=== PATIENT | female | born 1950 | race Caucasian/White ===

== ENCOUNTER 2020-12-24 00:10 | Inpatient (IN) | payer MEDICARE, SELFPAY ==
[2020-12-24] VITALS (10 sets, daily range): BP systolic 128–190; BP diastolic 71–94; PULSE 57–77; RESP 14–20; TEMP 36.6–37.2; O2SAT 96–99; BMI 26.1
--- NOTE | 2020-12-24 00:49 | PC.NURSE ---
Admission Patient arrived to the floor by EMS, patient alert and oriented X4, follows commandnds, breathing even and non labored on room air, patient placed on telemetry, rhythm NSR, oriented to room and call light system, pt wishes to stay in own clothes at this time, pt denies any pain or discomfort at this time.
--- NOTE | 2020-12-24 03:11 | PC.NURSE ---
Tranfer note This nurse called report to Charge nurse STEPHAN Maria, PT then transferred from [facility] to Med Surg room 256-1, Pt transferred by wheel chair with all personal belongings. Pt ambulated from the wheel chair to the bed stand by assist, Pt oriented to room and call light system, pt breathing even and unlabored on RA, no complaints at this time.
--- NOTE | 2020-12-24 04:43 | PM.HP ---
Providers/Chief Complaint Admitting Physician: Rhonda Stewart MD Chief Complaint: non stemi History of Present Illness Deandra Temple is a 70 year old female who was transferred to our hospital after presenting initially at [facility] with chief complaints of chest pain. She states that her chest pain started while she was carrying out a heavy box to her car. Rates it 8 out of 10. [place] as a pressure in the center of her chest, nonradiating. Relieved by itself a few minutes later. States she has had episodes of similar chest pain over the past week. Diaphoretic during episode. No past h/o cardiac issues. No h/o HTN, DM, HLD. No dyspnea. No orthopnea Notable labs or hemoglobin of 14.9, WBC 5.8, platelets 192, INR 0.8, sodium 138, potassium 4.2, creatinine 0.84, BUN 9, AST 101, ALT 53, ALP 125, T bili 0.5. UA with trace leukocyte Estrace and trace ketones. Negative nitrite. Negative U tox. Chest x-ray without acute cardiopulmonary abnormality. Baseline troponin of 16, 2-hour troponin of 35, delta troponin of 19 at 2 hours. COVID-19 antigen negative. She received 324 mg of aspirin. EKG normal sinus rhythm. vaccinated for Covid 19 Review of Systems General: Reports: 10 or more systems reviewed and unremarkable except in HPI and below Const: Denies: fever(s), chills or body aches Eyes: Denies: change in vision, blurry vision or photophobia ENMT: Reports: hoarseness; Denies: throat pain, enlarged tonsils, odynophagia or nasal congestion Card: Denies: chest pain, palpitations, irregular heart rhythm, edema, swelling of feet/ankles, lightheadedness, pre-syncope, dyspnea on exertion or orthopnea Resp: Denies: dyspnea, productive cough, non-productive cough, wheezing, stridor, pain on inspiration, change in phlegm color, hemoptysis or chest congestion GI: Denies: abdominal pain, nausea, vomiting, hematemesis, coffee ground emesis, dysphagia, heartburn, diarrhea, constipation, GI cramping, change in stool character, hematochezia or melena : Denies: flank pain, difficulty voiding, dysuria, urinary frequency, urinary urgency, urinary hesitancy or hematuria Musc: Denies: neck pain, back pain, extremity pain, joint swelling, joint warmth or deformity Neuro: Denies: headache(s), numbness in extremities, weakness in extremities, sensory changes, difficulty walking, frequent falls, dizziness, vertigo, behavioral changes, Slurred speech present or seizure-like activity Psych: Denies: anxiety, depression, suicidal ideation or homicidal ideation Endo: Denies: polyuria, polydipsia, tired all the time, cold intolerance or hot flashes Alcides/Lymph: Denies: easy bruising or easy bleeding Medications/Allergies Home Medications Medication Instructions Recorded Confirmed Last Taken Type No Known Home Medications 12/24/20 12/24/20 Unknown History Allergies Allergy/AdvReac Type Severity Reaction Status Date / Time Pork/Porcine Containing Allergy ADR-Nausea Verified 12/24/20 00:30 Products Poultry Allergy ADR-Nausea Verified 12/24/20 00:30 animal proteins Allergy ADR-Nausea Uncoded 12/24/20 00:30 red meat Allergy ADR-Nausea Uncoded 12/24/20 00:29 Vitals/I&O/Wt Last Vital Signs Temp 98.6 F 12/24/20 03:43 Pulse 62 12/24/20 03:43 Resp 18 12/24/20 03:43 BP 142/71 12/24/20 03:43 Pulse Ox 96 12/24/20 03:43 Weight last 48 hrs Weight 82.554 kg Physical Exam Narrative: EXAM NARRATIVE: General: No acute distress, AO x3 HEENT: PERRLA, pupils bilaterally equal and reactive, pallors not present Chest: Normal vesicular breath sounds, no added sounds, equal good air entry bilaterally CVS: S1-S2 regular, no murmurs, no tachycardia, no gallops, no rubs Abdomen: Soft, nontender, no organomegaly, bowel sounds present Neuro: No focal deficits, no facial deformity, AO x3, power 5/5 in all limbs Extremities: no edema, clubbing or cyanosis A&P Assessment and plan (1) Chest pain: Patient presented to the hospital today due to complaint of chest pain intermittent over the past week, today the episode associated with diaphoresis, more severe at 8 out of 10 intensity. Baseline and 2-hour troponins taken at [facility] as noted above in HPI. A 6-hour troponin was not drawn over there. EKG and troponin series here. From [facility] EKG shows normal sinus rhythm, no acute ST-T wave changes. Chest pain is currently settled at this time. If troponin taken here trending down, will proceed with stress test as chest pain could possibly represent angina pectoris. If any EKG changes develop and or troponin trending up, patient will be treated as an NSTEMI. Already given aspirin 325, continue aspirin 81, start atorvastatin 40 mg daily lipid panel for risk stratification. Status: Acute Attestations Medical Necessity Statement*: Observation, anticipate less than 2 midnight for above defined care. Coding Level of Care Code Acute Seed Expert for Chg Fwd Diagnoses Chest pain R07.9
--- NOTE | 2020-12-24 04:48 | ECG_ITS ---
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 Interpretive Statements NAME OF STUDY: LEXISCAN SESTAMIBI STRESS TEST INDICATION: Chest Pain PROCEDURE: At the baseline, the blood pressure was 181/97 mmHg with a heart rate of 75 bpm. The electrocardiogram showed sinus rhythm, normal axis with possible old septal infarct. The Lexiscan was infused over a period of 20 seconds. A total of 0.4 milligrams of Lexiscan was infused. The stress phase was continued for a total of 5 minutes. Heart rate at the end of the stress phase was 75 bpm with a blood pressure of 158/91 mmHg. The EKG at the peak infusion revealed no significant ST-T wave changes. The study was terminated due to protocol completion. Isolated PVCs noted. Sestamibi was injected 20 seconds after the Lexiscan infusion. Blood pressure at the end of the recovery phase was 138/91 mmHg with a heart rate of 74 beats per minute. CONCLUSION: 1. No significant EKG changes with the LexiScan infusion 2. No LexiScan induced chest pain or cardiac arrhythmia. 3. Normal blood pressure and heart rate response. 4. Sestamibi/sestamibi perfusion scan pending; see separate report. Electronically Signed On 12-24-2020 12:55:56 CDT by Jessenia Casanova M.D. [id number]
--- NOTE | 2020-12-24 04:48 | NMCV_ITS ---
NM kehinde perf SPECT r/s* [id number] Deandra Temple Age: 70 Gender: F : 1950 Exam Date: 12/24/2020 07:25 Ordering Phys: Rhonda Stewart MD Technologist: SARAH Barnett Exam Location: [facility] Indications: NSTEMI STRESS TEST Please see separate stress test report in [facility] for full findings IMAGE PROTOCOL Rest/Stress 1 Lexiscan Day Radiopharmaceutical Dose (mCi) Administration Site Administered by Rest: Tc-99m 10.8 IV SARAH Miles Sestamibi Stress:Tc-99m 32.5 IV SARAH Miles Sestamibi Rest: 24-Dec-2020 60 Discovery 630 Stress: 24-Dec-2020 30 Discovery 630 0.4mg Lexiscan. Images obtained in supine and prone position. SPECT RESULTS Technical Quality: Excellent Raw Data Analysis: Normal Image Corrections: No attenuation or motion correction applied Summed Stress Score: 10 Summed Rest Score: 6 Summed Difference Score: 4 PERFUSION FINDINGS Small size perfusion abnormality of mild severity of mid inferolateral, apical lateral, apical inferior and apical wall on rest images with reversibility in apical inferior, apical anterior and apical lateral paz on stress images. FUNCTIONAL RESULTS (calculated via Gated SPECT) Stress Image LV EF (%): 82 Stress EDV (mL):71 TID: 0.72 Stress ESV (mL):13 FUNCTIONAL FINDINGS: The left ventricle is normal in size. Transient Ischemia Dilatation of 0.72. There is normal left ventricular systolic function. The left ventricular ejection fraction is normal with a value of 82%. There is normal left ventricular wall thickening with no regional wall motion abnormality. Normal end-diastolic end-systolic volumes. IMPRESSIONS 1. Small sized reversible perfusion abnormality of mild severity of mid inferolateral, apical lateral, apical inferior, apical anterior and apical paz. 2. These findings likely represent small area of ischemia in left anterior descending artery territory. 3. Overall left ventricular systolic function is normal without regional wall motion abnormalities. 4. No significant EKG changes with Lexiscan infusion. 5. No prior similar studies to compare. Jessenia Casanova MD (Electronically Signed) Final Date: 24 December 2020 12:18 S
--- NOTE | 2020-12-24 04:49 | ECG_ITS ---
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 Measurements Intervals [place] Rate: 66 P: -22 [place]: 166 QRS: -5 QRSD: 87 T: 3 QT: 406 QTc: 426 Interpretive Statements SINUS RHYTHM LOW QRS VOLTAGE IN PRECORDIAL LEADS [QRS DEFLECTION < 1.0 mV IN CHEST LEADS] SEPTAL MYOCARDIAL INFARCTION [40+ ms Q WAVE IN V1/V2], PROBABLY OLD No previous ECG available for comparison Electronically Signed On 12-29-2020 16:46:13 CDT by Jessenia Casanova M.D. [id number]
[2020-12-24 05:29] LABS: D Dimer 0.79 ug/mIFEU (0-0.59)
[2020-12-24 05:32] LABS: Troponin(5th) Baseline 14 ng/L (0-10)
--- NOTE | 2020-12-24 05:32 | USCV_ITS ---
Maverick Deandra Age: 70 Gender: F : 1950 Exam Date: 12/24/2020 06:15 Ordering Phys: Rhonda Stewart MD Technologist: Natalya England Exam Location: [facility] Indication: PAIN, NSTEMI BP: 142 / 71 HR: 70 Rhythm: Sinus Technical Quality: Adequate MEASUREMENTS (Male / Female) Normal Values 2D ECHO LV Diastolic Diameter PLAX 5.0 cm 4.2 - 5.9 / 3.9 - 5.3 cm LV Systolic Diameter PLAX 3.5 cm IVS Diastolic Thickness 1.0 cm 0.6 - 1.0 / 0.6 - 0.9 cm IVS Systolic Thickness 1.3 cm LVPW Diastolic Thickness 1.2 cm 0.6 - 1.0 / 0.6 - 0.9 cm LVPW Systolic Thickness 1.8 cm RV Chamber Size 3.0 cm LVOT Diameter 2.0 cm LV Ejection Fraction 2D Teich 55.7 % LV Ejection Fraction MOD 2C 48.8 % LV Ejection Fraction 2C AL 51.9 % LA Diameter 3.0 cm LA Width 3.2 cm LA Height 3.4 cm RA Width 2.6 cm RA Height 3.8 cm Aorta at Sinotubular Diameter 2.4 cm M-MODE Aortic Annulus Diameter 2.4 cm LA Ao Ratio MM 1.3 MV E Point Septal Separation 0.8 cm DOPPLER AV Peak Velocity 136.0 cm/s LVOT Peak Velocity 93.0 cm/s AV Area Cont Eq vti 1.9 cm squared AV Area Cont Eq pk 2.2 cm squared MV Area PHT 2.7 cm squared Mitral E to A Ratio 0.6 MV E' Velocity 35.0 cm/s Mitral E to MV E' Ratio 7.9 Mitral E to LV E' Lateral Ratio 7.1 Mitral E to LV E' Septal Ratio 8.9 TR Peak Velocity 213.0 cm/s TR Peak Gradient 18.1 mmHg TV Peak E Velocity 52.0 cm/s Right Atrial Pressure 3.0 mmHg Pulmonary Artery Systolic Pressu 21.1 mmHg PV Peak Velocity 92.0 cm/s RV Acceleration Time 0.1 s RV Ejection Time 0.3 s RV AcT/ET 0.4 FINDINGS Left Ventricle Normal left ventricular cavity size. Normal left ventricular systolic function. No regional wall motion abnormalities. Left ventricular ejection fraction is estimated at 60 %. Grade I/IV diastolic dysfunction (abnormal relaxation filling pattern), normal to mildly elevated filling pressures. Right Ventricle The right ventricle is normal in size and function. Right Atrium The right atrium is normal in size. Left Atrium The left atrium is normal in size. Mitral Valve Structurally normal mitral valve without significant stenosis or prolapse. There is no mitral regurgitation. Aortic Valve Moderate aortic valve calcification. No aortic valve stenosis. Trace aortic valve regurgitation. Tricuspid Valve Structurally normal tricuspid valve without significant stenosis or regurgitation. Pulmonary artery systolic pressure is normal. Pulmonic Valve Structurally normal pulmonic valve without significant stenosis. There is no pulmonic regurgitation. Pericardium Normal pericardium without effusion. Aorta Normal ascending aorta dimension. CONCLUSIONS 1-Normal left ventricular cavity size. Normal left ventricular systolic function. No regional wall motion abnormalities. Left ventricular ejection fraction is estimated at 60 %. Grade I/IV diastolic dysfunction (abnormal relaxation filling pattern), normal to mildly elevated filling pressures. 2-No significant valve abnormalities. 3-There is no pericardial effusion. 4-Pulmonary artery systolic pressure is within normal limits. 5-Right atrial pressure is around 5 mm of mercury. 6-There are no prior echocardiogram studies to compare. Gwendolyn Trujillo MD (Electronically Signed) Final Date: 24 December 2020 12:52 S
[2020-12-24 06:01] LABS: Chol HDL Ratio 2.38 mg/dL (0.0-4.40); Cholesterol 169 mg/dL (0-200); HDL Cholesterol 71 mg/dL (60-100); LDL Cholesterol Calculated 85 mg/dL (50-129); Triglycerides 63 mg/dL (0-150)
[2020-12-24] MEDS: atorvastatin 40 mg Tablet PO ×2 (06:52→21:19)
[2020-12-24] MEDS: regadenoson 0.4 Mg/5 ml Syringe IVP (09:07)
--- NOTE | 2020-12-24 10:40 | PC.CHAP ---
Pastoral Care Encounter/Spiritual Assessment Type of Contact [] Declined business process architect visit [] Patient/Family/Request visit [] Outpatient visit [] Follow-up visit [] Physician referral [] Code/Alert [x] Routine visit [] Staff referral [] Actively dying [] Patient sleeping [] Family support [] [] Out of room [] Palliative care [] [x] Receiving care in room [] Pre-surgical visit [] Trauma [x] Long length of stay [] ICU visit [] Other: Relational/Emotional Strength [x] Patient feels connected with others/family/visitors/staff [] Distress [] Loneliness/isolation [] Abandonment Spirituality of Patient [] Person of Kenyatta [] Attends Spiritism of their Kenyatta [x] Believes in Prayer [] Reads Bible or Latter-Day materials [] There are Spiritual issues to be addressed Security Consultant Interventions [] Prayer [] Active listening [] Non-anxious presence [] Spiritual/emotional support [] Crisis/trauma care [] Spiritual counseling [] Bereavement support [] Provided bereavement packet [] Provided Bible/devotional materials [] Provided toy/stuffed animal, coloring book to patient or family member [] Provided Communion [] Anointing/[place] [] Salvation [] Completed spiritual assessment [] Other: Impact on Illness or Injury [] Angry [] Fearful [x] Anxious [] Often cries [] Exhaustion [] Unable to work [] Unable to attend congregation [] Unable to walk/stand [] Unable to read [] Unable to drive [] Unable to eat/drink [] Unable to sleep [] Unable to be with family [] Patient intubated [] Other: Summary Pancreatitis HBP Had tests doesn't know about the tests waiting on doctors report, has a good attitude about her health Time spent with patient 10 mins
--- NOTE | 2020-12-24 10:49 | ECG_ITS ---
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 Measurements Intervals [place] Rate: 70 P: 9 [place]: 193 QRS: -21 QRSD: 90 T: -8 QT: 378 QTc: 410 Interpretive Statements SINUS RHYTHM LOW QRS VOLTAGE IN PRECORDIAL LEADS [QRS DEFLECTION < 1.0 mV IN CHEST LEADS] SEPTAL MYOCARDIAL INFARCTION [40+ ms Q WAVE IN V1/V2], PROBABLY OLD Compared to ECG 12/24/2020 05:10:30 No significant changes Electronically Signed On 12-29-2020 16:52:31 CDT by Jessenia Casanova M.D. [id number]
[2020-12-24] MEDS: aspirin 81 mg EC Tablet PO (10:57)
[2020-12-24 15:22] LABS: Troponin T (5th) Once 12 ng/L (0-10)
--- NOTE | 2020-12-24 17:44 | P.CONIM_ITS ---
Providers/Reason For Consult Consulting Physician/Specialty*: Cardiology Reason for Consult*: Chest pain/abnormal stress test Attending Physician: Leroy Vasquez MD History of Present Illness History of Present Illness Deandra Temple is a 70 year old female past medical history significant past medical history significant for [id number] of tobacco abuse quit 4 years ago, hyperlipidemia who was experiencing off-and-on chest pain for the last 2 weeks, yesterday after moving heavy boxes she started chest pain which she described 8 out of 10 she was diaphoretic. She came to the ER after taking aspirin and pain medicine chest pain subsided. She was ruled out for acute coronary syndrome stress test was performed which showed small area of reversibility in the apical region could be artifact. Since then she had another episode of chest pain. We have been asked to assist in her care. Review of Systems General: Reports: 10 or more systems reviewed and unremarkable except in HPI and below Const: Denies: fever(s), chills or body aches Eyes: Denies: change in vision, blurry vision or photophobia ENMT: Reports: hoarseness; Denies: throat pain, enlarged tonsils, odynophagia or nasal congestion Card: Denies: chest pain, palpitations, irregular heart rhythm, edema, swelling of feet/ankles, lightheadedness, pre-syncope, dyspnea on exertion or orthopnea Resp: Denies: dyspnea, productive cough, non-productive cough, wheezing, stridor, pain on inspiration, change in phlegm color, hemoptysis or chest congestion GI: Denies: abdominal pain, nausea, vomiting, hematemesis, coffee ground emesis, dysphagia, heartburn, diarrhea, constipation, GI cramping, change in stool character, hematochezia or melena : Denies: flank pain, difficulty voiding, dysuria, urinary frequency, urinary urgency, urinary hesitancy or hematuria Musc: Denies: neck pain, back pain, extremity pain, joint swelling, joint warmth or deformity Neuro: Denies: headache(s), numbness in extremities, weakness in extremities, sensory changes, difficulty walking, frequent falls, dizziness, vertigo, behavioral changes, Slurred speech present or seizure-like activity Psych: Denies: anxiety, depression, suicidal ideation or homicidal ideation Endo: Denies: polyuria, polydipsia, tired all the time, cold intolerance or hot flashes Alcides/Lymph: Denies: easy bruising or easy bleeding Meds/Allergies Home Medications and Allergies Home Medications Medication Instructions Recorded Confirmed Last Taken Type No Known Home Medications 12/24/20 12/24/20 Unknown History Allergies Allergy/AdvReac Type Severity Reaction Status Date / Time Pork/Porcine Containing Allergy ADR-Nausea Verified 12/24/20 00:30 Products Poultry Allergy ADR-Nausea Verified 12/24/20 00:30 animal proteins Allergy ADR-Nausea Uncoded 12/24/20 00:30 red meat Allergy ADR-Nausea Uncoded 12/24/20 00:29 Current Medications Current Medications Generic Name Dose Route Start Last Admin Trade Name Omkarq PRN Reason Stop Dose Admin Aspirin 81 mg 12/24/20 09:00 12/24/20 10:57 Aspirin 81 Mg Ec Tablet PO 81 mg DAILY JOSÉ MIGUEL Administration Atorvastatin Calcium 40 mg 12/24/20 05:35 12/24/20 06:52 Atorvastatin 40 Mg Tablet PO 40 mg BEDTIME JOSÉ MIGUEL Administration Vitals/I&O/Wt Last Vital Signs Temp 98.9 F 12/24/20 15:25 Pulse 76 12/24/20 15:25 Resp 16 12/24/20 15:25 BP 164/94 12/24/20 15:25 Pulse Ox 97 12/24/20 15:25 12/24/20 12/24/20 12/24/20 06:59 14:59 22:59 Intake Total 120 / 120 1440 / 1440 Output Total 0 / 0 Balance 120 / 120 1440 / 1440 Weight last 48 hrs Weight 182 lb Physical Exam Narrative: EXAM NARRATIVE: GENERAL: Patient is alert, awake and oriented x3. NECK: No jugular vein distension. HEENT: No cyanosis. No icterus. No pallor. HEART: Regular S1 and S2. No murmur, rub or gallop. LUNGS: Clear to auscultate bilaterally. ABDOMEN: Soft, nontender and nondistended. Positive bowel sounds. No guarding, rebound or tenderness. CENTRAL NERVOUS SYSTEM: Grossly nonfocal. EXTREMITIES: Lower extremities without edema bilaterally. A&P Assessment and plan (1) Chest pain: Worsening of chest pain overnight last couple of weeks in a person who had strong family history of heart problem and tobacco abuse may need further exploration with left heart cath. Stress test is not suggestive of significant ischemia however patient story is pretty compelling. I would therefore proceed with left heart cath. I have discussed with the patient and her daughter all risk benefit and alternative for the procedure. She understand the risk for urgent emergent bypass surgery, risk for stroke hematoma major minor bleed leading to transfusion. She is a good candidate for dual antiplatelet therapy. I will load her with Plavix tonight. Most likely will proceed with left heart cath around 1 PM tomorrow. She will be n.p.o. after morning light breakfast. Status: Acute (2) Hyperlipidemia LDL goal <100: Continue statin Status: Acute Consult Attestations Medical Necessity Statement: Patient require continuation hospitalization for above defined care. 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
--- NOTE | 2020-12-24 18:40 | PC.NURSE ---
this nurse witnessed Dr. Haney talking with patient and her daughter about risk/benefits of cardiac cath procedure, all questions were answered appropriately. patient consented for procedure, signature and conversation witnessed by this nurse.
[2020-12-24] MEDS: clopidogrel 300 mg Tablet PO (19:49)
[2020-12-24] MEDS: temazepam 15 mg Capsule PO (21:20)
[2020-12-25] VITALS (65 sets, daily range): BP systolic 91–183; BP diastolic 54–123; PULSE 57–97; RESP 7–26; TEMP 36.4–37; O2SAT 92–98
--- NOTE | 2020-12-25 08:30 | XACV_ITS ---
Exam Room: 256 Ht: 178 cm Wt: 83 kg BSA: 2.03 m2 Gender: Female : 1950 Any Known Allergies: Other Exam Priority: Routine Procedure(s): Procedure Description: Diagnostic procedure Diagnostic Cath Status: Urgent Diagnostic Findings * Left Main has no disease. * Circumflex has no disease. * Right Coronary Artery has no disease. * Mid Left Anterior Descending: critical 95% stenosis, EARLINE: 3 flow. * Mid Left Anterior Descending: minimal 30% stenosis, EARLINE: 3 flow. * Coronary angiography shows right dominance. Interventional Findings * Mid Left Anterior Descendin% stenosis treated with a AB TREK 2.50X12 RX BALLOON, MDT Jasmine VERONICA 4.0X12 JEFFREY, and MDT DEONDRE EUPHORA RX [id number] BALLOON. 0% residual stenosis, EARLINE: 3 flow. Conclusions 1. There is critical coronary artery disease with one vessel disease. 2. Mid Left Anterior Descending was treated with a Balloon, Drug Eluting Stent, and Balloon. Recommendations * Continue current medical management and risk factor modification. Pressures Phase:Rest AO : 140 / 82 ( 107 ) @ 7:55:00 AM Clinical Evaluation EBL: 5mL-10mL Procedural Details Procedure Consent Obtained. Pre-Procedure Time Out. Identified patient by full name and date of as verbalized by the patient/guarantor. Does the consent match the physician's order: Yes. Accurate & Complete Informed Consent: Yes. Inpatient/Outpatient History & Physical on Chart: Yes. If H&P is completed, is and addenduem needed: No; If yes, is the addendum complete: N/A. Visualize and Verify Site with Patient/Guarantor: N/A. Relevant Radiology Images available: N/A. Pre-op teaching completed and patient verbalized understanding. The risks, benefits, and alternatives of sedation and/or procedure were discussed by physician. The patient agrees to continue. Procedure started. [facility] Clinical Fraility Score: 3: Managing Well. Hat Blocking Machine Operator Indications: New Onset Angina, abnormal stress test. Chest Pain Symptom Assessment: Typical Angina Symptoms. Cardiovascular Instability: No, if yes, Persistant Ischemic Symptoms. Physician arrived. Correct patient, site and procedure confirmed by cath team. PERRLA. Strong, equal hand grounds/maintenance specialist bilaterally. Lungs clear x 5 lobes. IV Site on Arrival: 20 gauge in the right anticubital. IV Fluids: 0.9% NaCl at KVO. 0. mL infused prior to laborer steel handling. Pre Procedural Pulses: bilateral radial was 2+. Oxygen started at 2liters/min via nasal canula. right radial was prepped with chloroprep then draped in the usual sterile fashion. right groin was prepped with chloroprep then draped in the usual sterile fashion. Baseline sample Acquired. HR: 76 BPM. Equipment: 6F - Radial. Cardiac Cath Pack. ACIST Manifold Kit Model BT 2000. Heparinized Saline (2 units/mL), 1000 mL bag. Physician scrubbed in. Immediate Pre-Procedure Time Out. Correct Patient: Yes; Correct Procedure: Yes; Correct Site: Yes; Correct Patient Position: Yes; Correct Supplies: Yes; Dried Flammable Prep: Yes; Blood Products Available: N/A;. Lidocaine 1% infiltrated to the right radial. Arterial access obtained. A 5 bangladeshi TIG catheter in over wire. Catheter redirected to the RCA. Catheter removed over the exchange wire. Multiple views taken of left coronary artery. Multiple views taken of right coronary artery. Inventory is CRD 6 FR XB 3.5 GUIDE. Inventory is [employer] [place] XT .014 190cm Str. Guidewire. 6 bangladeshi XB 3.5 guide catheter was inserted over the wire. Guide catheter out. Inventory is CRD 6FR JL 3.5 GUIDE. [place] guidewire was advanced through the guide catheter to lesion in the mid LAD. MDIvonne Ferraro VERONICA 4.0x12 JEFFREY inserted. Unable to cross lesion. Intact stent removed. Inflation number : 1 A AB TREK 2.50X12 RX BALLOON was prepped and advanced across the Mid LAD , then inflated to 12 SASHA for 0:15 seconds. Inflation number: 2 The AB TREK 2.50X12 RX BALLOON was reinflated across the Mid LAD, to 18 SASHA for 0:09 seconds. Balloon out. Results checked. Inflation Number : 3 A YOLY Ferraro VERONICA 4.0X12 JEFFREY -Lot Number# [id number] exp date 02/15/2022 was prepped and advanced across the Mid LAD. The stent was deployed at 16 SASHA for 0:22 seconds. Results checked. Inflation number : 4 A YOLY MENDOSA EUPHORA RX [id number] BALLOON was prepped and advanced across the Mid LAD , then inflated to 14 SASHA for 0:17 seconds. Balloon out. Results checked. ACT drawn. Results 267 seconds. Therapeutic limits - pre-heparin administration 90-150 seconds and monitoring heparin during a vascular procedure >250 seconds. Wire out. Guide catheter out. Physician scrubbed out. A TR Band was successful obtaining hemostatsis at the Right Radial artery insertion site. TR band placed. Hemostasis obtained. Post Procedure: Pulses reassessed and unchanged. PERRLA. Strong, equal hand grounds/maintenance specialist bilaterally. No VTE prophylaxis required. Medication's Wasted: Nitro = 49.6 mg. Medication's Wasted: Lidocaine 1% = 14 mL. Medication's Wasted: Heparin = 3000 units. Total IV fluids: 40 mL. Contrast type used: Omnipaque 300 mgI/mL, 500 mL bottle. Post-op diagnosis: single vessel obstructive CAD. Complications: none. Estimated blood loss: 5mL-10mL. Procedure completed. Patient transferred by wheelchair to CPRU. Vital chart was stopped. Access Site Site: Right Radial artery Sheath Size: 6 Fr Hemostasis Method: TR Band Hemostasis Success: Successful Procedure Medications Start: 8:40 AM Stop: 8:40 AM Medication: Benadryl Amount: 50 mg Route: I.V. Start: 8:42 AM Stop: 8:42 AM Medication: Versed Amount: 1 mg Route: I.V. Start: 8:42 AM Stop: 8:42 AM Medication: Fentanyl Amount: 50 mcg Route: I.V. Start: 8:48 AM Stop: 8:48 AM Medication: Nitrogylcerin Amount: 200 mcg Route: I.A. Start: 8:50 AM Stop: 8:50 AM Medication: Heparin Amount: 5000 units Route: I.V. Start: 8:55 AM Stop: 8:55 AM Medication: Heparin Amount: 3000 units Route: I.V. Start: 9:13 AM Stop: 9:13 AM Medication: Nitrogylcerin Amount: 400 mcg Route: I.A. I, the attending physician, have reviewed and verified all procedure medications. Yes, all medications given per verbal order History/Risk Factors Hypertension: No Dyslipidemia: Yes Peripheral Arterial Disease (PAD): No Myocardial Infarction (MO): No Obesity: No Renal Disease: No Tobacco Use: Former Prior Interventions PCI: No CABG: No Valve Surgery: No Report Signatures Finalized by Gwendolyn Trujillo MD on 01/09/2021 05:59 PM
--- NOTE | 2020-12-25 08:37 | W.PM.OPSUD ---
Surgery/Procedure H&P Update DATE OF PROCEDURE: December 25, 2020 DATE H&P PERFORMED: 12/24/20 H&P UPDATE INFORMATION: I have reviewed H&P completed within last 30 days, I have examined patient prior to procedure and Changes to prior documentation as noted here PREOP DIAGNOSIS: Chest pain/abnormal stress test PATIENT REASSESSED PRIOR TO SEDATION, WITH NO CHANGE NOTED: Yes PHYSICAL EXAM: alert, oriented x 3 and clear to auscultation bilaterally AIRWAY EVAL/ANESTHESIA PLAN: ASA II, Risks, benefits & alternatives of sedation and/or procedure discussed and Patient agrees to continue as planned
--- NOTE | 2020-12-25 09:25 | P.PN_ITS ---
Subjective Subjective: Interval history: Status post coronary proximal to mid significant stenosis treated with balloon angioplasty drug-eluting stent 4.0 x 12 mm postdilated with noncompliant 4.5 mm balloon. Excellent angiographic result was obtained. Patient was loaded with 300 mg of Plavix last night. Vitals/I&O/Wt Last Vital Signs Temp 98.5 F 12/25/20 08:00 Pulse 83 12/25/20 08:00 Resp 16 12/25/20 08:00 BP 158/81 12/25/20 08:00 Pulse Ox 97 12/25/20 08:00 12/24/20 12/25/20 12/25/20 22:59 06:59 14:59 Intake Total 720 / 2160 120 / 2280 Balance 720 / 2160 120 / 2280 Weight last 48 hrs Weight 182 lb Physical Exam Narrative: EXAM NARRATIVE: GENERAL: Patient is alert, awake and oriented x3. NECK: No jugular vein distension. HEENT: No cyanosis. No icterus. No pallor. HEART: Regular S1 and S2. No murmur, rub or gallop. LUNGS: Clear to auscultate bilaterally. ABDOMEN: Soft, nontender and nondistended. Positive bowel sounds. No guarding, rebound or tenderness. CENTRAL NERVOUS SYSTEM: Grossly nonfocal. EXTREMITIES: Lower extremities without edema bilaterally. Const: COMMON NORMALS: alert Resp: COMMON NORMALS: clear to auscultation bilaterally AUSCULTATION: clear to auscultation bilaterally Neuro: SENSORIUM/ORIENTATION: Yes alert A&P Assessment and plan (1) Chest pain: On diet significant stenosis treated with drug-eluting stent. Continue aspirin Plavix statin. Start beta-mitch 12.5 mg twice a day. Echocardiogram will obtain to assess LV function. Status: Acute (2) Hyperlipidemia LDL goal <100: Continue statin Status: Acute Attestations Medical Necessity Statement*: Patient require continuation hospitalization PCI care for Coding Level of Care Code Established Pt Acute Contract Administration Coordinator for Lilli Farrell Patient Type Established History Detailed Exam Detailed Medical Decision Making Moderate Complexity Diagnoses Chest pain R07.9 Hyperlipidemia LDL goal <100 E78.5
--- NOTE | 2020-12-25 09:33 | PC.NURSE ---
Received to CPRU Received to CPRU via w/c from cardiac optical laboratory technician. TR band in place to R radial access site, site unremarkable, no hematoma or bleeding noted. Denies pain. See flow sheet for vitals. Will continue to monitor. Call light in reach.
--- NOTE | 2020-12-25 10:48 | PC.NURSE ---
TR Band 2ml air released from TR band at this time per protocol. No s/s of bleeding or hematoma noted. Will monitor.
--- NOTE | 2020-12-25 12:30 | PC.NURSE ---
Hematoma Hematoma noted above TR band site, hematoma mashed out, air placed back into first TR band and 2nd TR band applied. Will monitor.
--- NOTE | 2020-12-25 13:54 | SUR.PHASEI ---
TRANSFER Room ready for recovery. Patient taken to CSU. Report to Liza ROTHMAN. Transferred via bed. Condition stable.
[2020-12-25] MEDS: clopidogrel 75 mg Tablet PO (16:04)
--- NOTE | 2020-12-25 17:19 | P.PN_ITS ---
Subjective Subjective: Interval history: 70 year old female who was transferred to our hospital after presenting initially at [facility] with chief complaints of chest pain. s/p angiography with angioplasty and JEFFREY placement Medications: Reviewed: Yes Vitals/I&O/Wt Last Vital Signs Temp 98.6 F 12/25/20 15:09 Pulse 74 12/25/20 15:09 Resp 18 12/25/20 15:09 BP 126/76 12/25/20 15:09 Pulse Ox 96 12/25/20 15:09 12/25/20 12/25/20 12/25/20 06:59 14:59 22:59 Intake Total 120 / 2280 Balance 120 / 2280 Weight last 48 hrs Weight 182 lb Physical Exam Const: COMMON NORMALS: no acute distress and no limitations Chest: COMMONS NORMALS: normal inspection of the chest Resp: COMMON NORMALS: normal respiratory effort and No retractions Cardio: COMMON NORMALS: regular rate and regular rhythm RATE: regular rate RHYTHM: regular rhythm GI: COMMON NORMALS: Soft to palpation and non-tender PALPATION: Yes Soft to palpation Extremity: OTHER: right wrist hematoma A&P Assessment and plan (1) Chest pain: Status: Acute (2) Hyperlipidemia associated with type 2 diabetes mellitus: Status: Acute (3) Hyperlipidemia LDL goal <100: Status: Acute Additional A&P Information #CAD #HLD #history of tobacco use #HTN #right wrist hematoma Plan: 1. continue asa, plavix, atorvastatin, add coreg 2. observe overnight Dispo: DC in AM Attestations Medical Necessity Statement*: Deandra Bagley Maverick's hospital stay will require greater than 2 midnights for CAD Coding Level of Care Code Acute Injection Molding Process Technician for Chg Fwd Diagnoses Chest pain R07.9 Hyperlipidemia associated with type 2 diabetes mellitus E11.69; E78.5 Hyperlipidemia LDL goal <100 E78.5
[2020-12-25] MEDS: carvedilol 12.5 mg Tablet PO (18:05)
[2020-12-25] MEDS: lisinopril 5 mg Tablet PO (19:44)
--- NOTE | 2020-12-25 20:12 | PC.NURSE ---
RECEIVED FROM CARDIAC INCOME TAX AUDITOR AT 1415.REPORT RECEIVED.PT HAS 2 TR BANDS.HEMATOMA FORMATION NOTED IN RECOVERY AREA OF INCOME TAX AUDITOR...AND 2ND TR BAND APPLIED BY THEIR STAFF.2ND TR BAND REMOVED BY MITZY ON CSU UNIT.HEMATOMA MARKED.INSTRUCTED IN ACTIVITY RESTRICTIONS S/P RADIAL ARTERY PROCEDURE AND INSTRUCTED TO NOTIFY STAFF FOR ANY BLEEDING,PAIN,CP,SOB, OR FOR ANY CONCERNS AT ALL.PT ALSO ORIENTED TO ROOM ENVIRONMENT.PT VERB UNDERSTANDING OF INSTRUCTIONS.
--- NOTE | 2020-12-25 20:19 | PC.NURSE ---
TR BAND REMOVED AT 1700.RIGHT HAND REMAINS WARM TO TOUCH AND WITH BRISK CAPILLARY REFILL.PALPABLE RADIAL PULSE REMAINS.NO INCREASE IN HEMATOMA FORMATION NOTED.SITE DRESSED WITH 2X2 GAUZE AND SECURED WITH BIOCCLUSIVE DRSG.INSTRUCTED IN ACTIVITY RESTRICTIONS S/P TR BAND REMOVAL...AND INSTRUCTED TO NOTIFY STAFF FOR ANY BLEEDING,PAIN,NUMBNESS OR FOR ANY CONCERNS AT ALL.PT VERB UNDERSTANDING OF INSTRUCTIONS.DR NELSON CAME AND CHECKED IN ON PT.RECEIVED ORDERS FOR LISINOPRIL AND COREG.
--- NOTE | 2020-12-25 21:28 | PC.NURSE ---
Day shift nurse states that patient received NS today, however it was shut off per order upon arrival on shift.
[2020-12-25] MEDS: atorvastatin 40 mg Tablet PO (21:29)
[2020-12-26] VITALS: BP 108/62; PULSE 77; RESP 12; TEMP 37.1; O2SAT 96
--- NOTE | 2020-12-26 00:16 | PC.NURSE ---
Patient states that her right wrist is sore. Radial pulse 3+ per palpitation. Bruise, but no hematoma. No bleeding or oozing. VSS. Will monitor.
[2020-12-26 03:35] VITALS: BP 104/56; PULSE 66; RESP 17; O2SAT 97
[2020-12-26 05:57] VITALS: PULSE 69
[2020-12-26 05:59] LABS: Basophils % 0.5 %; Eosinophils # 0.1 10^3/uL (0.0-0.8); Eosinophils % 1.7 %; Hematocrit 39.7 % (37.0-47.0); Hemoglobin 12.5 g/dL (11.5-15.3); Lymphocytes # 1.4 10^3/uL (0.8-4.8); Lymphocytes % 34.5 %; Mean Corpuscular HGB Conc 31.5 g/dL (30.0-36.0); Mean Corpuscular Hemoglobin 32.8 pg (28.0-34.0); Mean Corpuscular Volume 104.2 fL (81-99); Mean Platelet Volume 10.7 fL (7.4-10.4); Monocytes # 0.3 10^3/uL (0.2-0.9); Monocytes % 7.4 %; Neutrophils # 2.33 10^3/uL (1.8-7.7); Neutrophils % 55.9 %; Nucleated Red Blood Cells % 0 %; Platelet Count 143 10^3/cmm (130-400); Red Blood Count 3.81 10^6/uL (4.1-5.3); Red Cell Distribution Width 12.1 % (12.1-15.1); White Blood Count 4.2 10^3/uL (4.0-10.0)
[2020-12-26 06:16] LABS: Anion Gap 12.9 (5-19); Blood Urea Nitrogen 6 mg/dL (8-23); Calcium 8.6 mg/dL (8.5-10.5); Carbon Dioxide 25 mmol/L (22-29); Chloride 106 mmol/L (98-107); Glomerular Filtration Rate 71.3 mL/min (90-130); Glucose 137 mg/dL (65-115); Osmolality Calculated 290 mOsm/kg (285-295); Potassium 3.9 mmol/L (3.5-5.1); Sodium 140 mmol/L (136-145)
[2020-12-26 06:17] LABS: Estmated Average Glucose 91; Hemoglobin A1C 4.8 % (4.0-6.0)
[2020-12-26 07:18] VITALS: BP 101/63; PULSE 66; RESP 14; TEMP 36.6
[2020-12-26] MEDS: lisinopril 5 mg Tablet PO (08:50)
[2020-12-26] MEDS: clopidogrel 75 mg Tablet PO (08:50)
[2020-12-26] MEDS: aspirin 81 mg EC Tablet PO (08:50)
[2020-12-26] MEDS: carvedilol 12.5 mg Tablet PO (08:50)
--- NOTE | 2020-12-26 10:42 | PM.PN ---
Subjective Subjective: Interval history: Cardiology coverage Patient apparently underwent cardiac catheterization followed by PCI of the LAD lesion yesterday by Dr. Trujillo. Since the coronary intervention, the patient has been doing okay with no recurrence of chest pain. She developed a small hematoma at the radial arterial puncture site which is resolving. She denies any other specific complaints at this time. Her telemetry shows sinus rhythm with frequent PVCs. Blood tests from today looks okay with no significant electrolyte abnormalities. Medications: Reviewed: Yes Medication Review Details: Current Medications Acetaminophen (Acetaminophen 325 Mg Tablet) 650 mg PO Q6H PRN PRN Reason: Mild/Mod Pain Or Temp >/= 101 Acetaminophen (Acetaminophen 325 Mg Tablet) 650 mg PO Q6H PRN PRN Reason: MILD PAIN Al Hydrox/Mg Hydrox/Simethicone (Ocpo-Vyi-Brewictpg-Mary Jane 30 Ml Udc) 30 ml PO Q15M PRN PRN Reason: INDIGESTION Aspirin (Aspirin 81 Mg Ec Tablet) 81 mg PO DAILY [facility] Last Admin: 12/26/20 08:50 Dose: 81 mg Documented by: Atorvastatin Calcium (Atorvastatin 40 Mg Tablet) 40 mg PO BEDTIME [facility] Last Admin: 12/25/20 21:29 Dose: 40 mg Documented by: Atropine Sulfate (Atropine 1 Mg/Ml Sdv 1 Ml) 0.5 mg IVP PRN PRN PRN Reason: Symptomatic bradycardia Carvedilol (Carvedilol 12.5 Mg Tablet) 12.5 mg PO BID [facility] Last Admin: 12/26/20 08:50 Dose: 12.5 mg Documented by: Clopidogrel Bisulfate (Clopidogrel 75 Mg Tablet) 75 mg PO DAILY [facility] Last Admin: 12/26/20 08:50 Dose: 75 mg Documented by: Lisinopril (Lisinopril 5 Mg Tablet) 5 mg PO DAILY [facility] Last Admin: 12/26/20 08:50 Dose: 5 mg Documented by: Magnesium Hydroxide (Magnesium Hydroxide 30 Ml Udc) 30 ml PO DAILY PRN PRN Reason: CONSTIPATION Morphine Sulfate (Morphine 4 Mg/Ml Sdv 1 Ml) 2 mg IVP Q4H PRN PRN Reason: SEVERE PAIN Naloxone HCl (Naloxone 0.4 Mg/Ml Sdv) 0.1 mg IVP Q2M PRN PRN Reason: RESPIRATORY RATE < 8/MIN Nitroglycerin (Nitroglycerin 0.4 Mg Sublingual Tablet) 0.4 mg SUBLINGUAL Q5M PRN PRN Reason: CHEST PAIN Ondansetron HCl (Ondansetron 2 Mg/Ml Sdv 2 Ml) 4 mg IVP Q8H PRN PRN Reason: vomiting, or N/V if npo Ondansetron HCl (Ondansetron 2 Mg/Ml Sdv 2 Ml) 4 mg IVP Q2M PRN PRN Reason: NAUSEA Temazepam (Temazepam 15 Mg Capsule) 15 mg PO BEDTIME PRN PRN Reason: INSOMNIA Last Admin: 12/24/20 21:20 Dose: 15 mg Documented by: Vitals/I&O/Wt Last Vital Signs Temp 97.9 F 12/26/20 07:18 Pulse 66 12/26/20 07:18 Resp 14 12/26/20 07:18 BP 101/63 12/26/20 07:18 Pulse Ox 97 12/26/20 03:35 12/25/20 12/26/20 12/26/20 22:59 06:59 14:59 Intake Total 560 / 560 118 / 118 Balance 560 / 560 118 / 118 Physical Exam Narrative: EXAM NARRATIVE: GENERAL: The patient is alert and oriented times three. Not in any acute distress. HEENT: No significant pallor, icterus or lymphadenopathy.Oral cavity: There are no mucous membrane lesions. NECK: Trachea appears to be central. No masses noted. No JVD or thyromegaly appreciated. RESPIRATORY: Chest is symmetrical. No intercostals muscle retraction or any accessory muscle activation. There is no chest wall tenderness. Breath sounds are heard bilaterally. No rales or rhonchi heard. No evidence of any consolidation. BREASTS: Deferred. HEART: The heart sounds are normal. No S3 or S4. No significant murmurs. No pericardial rub ABDOMEN: No vessel pulsations or distention. No tenderness. No organomegaly appreciated. Bowel sounds are normally heard. : Deferred. RECTAL: Deferred. LYMPHATIC: No lymphadenopathy noted in the neck or groin. EXTREMITIES: The small hematoma at the regularly puncture site seems to be resolving. No evidence of pseudoaneurysm. MUSCULOSKELETAL: No acute joint deformities or swelling SKIN: There are no significant rashes or ecchymosis NEUROPSYCHIATRIC: The patient is alert and oriented x3. Appears to be in a good mood. No tremors or rigidity noted. Data : 12/26/20 04:26 12/26/20 04:26 Other Labs: Laboratory Last Values WBC 4.2 10^3/uL (4.0-10.0) 12/26/20 04:26 RBC 3.81 10^6/uL (4.1-5.3) L 12/26/20 04:26 Hgb 12.5 g/dL (11.5-15.3) 12/26/20 04:26 Hct 39.7 % (37.0-47.0) 12/26/20 04:26 MCV 104.2 fL (81-99) H 12/26/20 04:26 MCH 32.8 pg (28.0-34.0) 12/26/20 04:26 MCHC 31.5 g/dL (30.0-36.0) 12/26/20 04:26 RDW 12.1 % (12.1-15.1) 12/26/20 04:26 Plt Count 143 10^3/cmm (130-400) 12/26/20 04:26 MPV 10.7 fL (7.4-10.4) H 12/26/20 04:26 Neut % (Auto) 55.9 % 12/26/20 04:26 Lymph % (Auto) 34.5 % 12/26/20 04:26 [place] % (Auto) 7.4 % 12/26/20 04:26 Eos % (Auto) 1.7 % 12/26/20 04:26 Baso % (Auto) 0.5 % 12/26/20 04:26 Neut # (Auto) 2.33 10^3/uL (1.8-7.7) 12/26/20 04:26 Lymph # (Auto) 1.4 10^3/uL (0.8-4.8) 12/26/20 04:26 [place] # (Auto) 0.3 10^3/uL (0.2-0.9) 12/26/20 04:26 Eos # (Auto) 0.1 10^3/uL (0.0-0.8) 12/26/20 04:26 Baso # (Auto) 0.0 10^3/uL (0.0-0.1) 12/26/20 04:26 Nucleated RBC % (auto) 0 % 12/26/20 04:26 Nucleated RBCs # 0.0 /100WBC 12/26/20 04:26 D-Dimer 0.79 ug/mIFEU (0-0.59) H 12/24/20 05:10 Sodium 140 mmol/L (136-145) 12/26/20 04:26 Potassium 3.9 mmol/L (3.5-5.1) 12/26/20 04:26 Chloride 106 mmol/L (98-107) 12/26/20 04:26 Carbon Dioxide 25 mmol/L (22-29) 12/26/20 04:26 Anion Gap 12.9 (5-19) 12/26/20 04:26 BUN 6 mg/dL (8-23) L 12/26/20 04:26 Creatinine 0.8 mg/dL (0.5-0.9) 12/26/20 04:26 GFR Calculation 71.3 mL/min (90-130) L 12/26/20 04:26 Glucose 137 mg/dL (65-115) H 12/26/20 04:26 Estimat Average Glucose 91 12/26/20 04:26 Hemoglobin A1c 4.8 % (4.0-6.0) 12/26/20 04:26 Calculated Osmolality 290 mOsm/kg (285-295) 12/26/20 04:26 Calcium 8.6 mg/dL (8.5-10.5) 12/26/20 04:26 Troponin T Gen 5 ng/L 12 ng/L (0-10) H 12/24/20 14:41 Troponin T Baseline 14 ng/L (0-10) H 12/24/20 05:10 Triglycerides 63 mg/dL (0-150) 12/24/20 05:10 Cholesterol 169 mg/dL (0-200) 12/24/20 05:10 LDL Cholesterol, Calc 85 mg/dL (50-129) 12/24/20 05:10 HDL Cholesterol 71 mg/dL (60-100) 12/24/20 05:10 LDL/HDL Ratio 1.20 RATIO (0.00-3.22) 12/24/20 05:10 Cholesterol/HDL Ratio 2.38 mg/dL (0.0-4.40) 12/24/20 05:10 A&P Assessment and plan (1) Atherosclerotic heart disease of [place] coronary artery with unstable angina pectoris: Patient status post PCI of the LAD lesion. Currently seems to be stable. She may continue on the aspirin, Plavix, beta-mitch and statin. I discussed with the patient in detail the importance of compliance to diet, exercise and medications. Patient seems understand this well. Status: Acute (2) Hyperlipidemia associated with type 2 diabetes mellitus: May continue on the current medication. Need to have follow-up evaluation by the primary care. Status: Acute Additional A&P Information If the patient continues to remain stable, may be discharged home from a cardiac standpoint. She may be kept on the current medications. Please make an appointment to be seen by the nurse practitioner at [facility] next week. Make an appointment to be seen by Dr. Trujillo in 1 month Attestations Medical Necessity Statement*: If the patient continues to remain stable, may be discharged home from a cardiac standpoint. Coding Level of Care Code Acute Threshing Department Supervisor for Lilli Farrell Diagnoses Atherosclerotic heart disease of [place] coronary artery with unstable angina pectoris I25.110 Hyperlipidemia associated with type 2 diabetes mellitus E11.69; E78.5
[2020-12-26 11:50] VITALS: BP 115/80; PULSE 55; RESP 16; TEMP 37; O2SAT 98
[2020-12-26 13:00] VITALS: BP 115/80; PULSE 66; RESP 14
[2020-12-26] MEDS: magnesium lactate 84 mg Tablet PO (13:29)
--- NOTE | 2020-12-26 13:40 | PC.NURSE ---
Discharge instructions given per the physician's orders. Patient verbalized understanding of teaching and did not have any further questions. IV has been removed. Patient dressed self. No further needs identified at this time.
--- NOTE | 2020-12-26 20:21 | P.DS_ITS ---
Discharge Providers Date of Admission: 12/25/20 17:40 Date of Discharge: December 26, 2020 Attending Provider at Admission: Rhonda Stewart MD Attending Provider at Discharge: Ginger Pace Diagnoses at Discharge Discharge Diagnosis (1) Atherosclerotic heart disease of [place] coronary artery with unstable angina pectoris: Status: Acute (2) Hyperlipidemia associated with type 2 diabetes mellitus: Status: Acute Reason for Visit Reason for Visit: non stemi Hospital Course Hospital Course 70 year old female who was transferred to our hospital after presenting initially at [facility] with chief complaints of chest pain. cardiology was consulted on admission. s/p angiography with angioplasty and JEFFREY placement. Patient was cleared for discharge post procedure by cards. 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 echo complete * [id number] Routine Ultrasound 12/24/20 05:32 Completed Vitals: Last Vital Signs Temp 98.6 F 12/26/20 11:50 Pulse 66 12/26/20 13:00 Resp 14 12/26/20 13:00 BP 115/80 12/26/20 13:00 Pulse Ox 98 12/26/20 11:50 Discharge Plan Discharge Patient Disposition: Home Condition: Stable Prescriptions: New aspirin 81 mg Tablet,Delayed Release (Dr/Ec) 81 mg PO DAILY Qty: 30 RF: 0 Mag 64 64 mg tablet,delayed release (DR/EC) 64 mg PO BID Qty: 60 RF: 3 No Action Probiotic 100 billion cell capsule PO RF: 0 multivitamin Tablet 1 tab PO DAILY RF: 0 vitamin L36-nvevb acid 1-0.8 mg tablet PO PRNRF: 0 atorvastatin 40 mg tablet 40 mg PO BEDTIME Qty: 90 RF: 4 carvedilol 12.5 mg tablet 6.25 mg PO BID Qty: 90 RF: 4 clopidogrel 75 mg tablet 75 mg PO DAILY Qty: 90 RF: 4 lisinopril 5 mg tablet 5 mg PO DAILY Qty: 90 RF: 4 Discharge Orders: Discharge Order (Routine); Ordered 12/26/20 Ordered By: Ginger Pace Referrals: Gwendolyn Trujillo MD [Physician] - 1 month ([facility] will be calling to schedule a Cardiology followup with Dr. Trujillo to be seen in approx. 1 month. If you don't hear from them by Monday, please give them a call. Thank you) Shiela Lloyd FNP [Nurse Practitioner] - 1 week ([facility] will be calling to schedule a post procedure followup with FELIPE Morin to be seen in approx. 1 week. If you don't hear from them by Monday, please give them a call. Thank you) Discharge Diet: Advance as tolerated and Cardiac Discharge Activity: Increase activity as tolerated Patient Instructions: Lisinopril (By mouth), Aspirin (By mouth), Atorvastatin (By mouth), Carvedilol (By mouth), Clopidogrel (By mouth), Left Heart Catheterization (DC), Chest Pain Stoplight, Opioid Safety, Post Angiogram Home Care Instructions Discharge Attestations Time Spent in Discharge Care*: greater than 30 min Specific Discharge Activities: educating patient, discussing with pcp/other providers, discussing with case management specialist/social workers/dc planners, docume nting/other paperwork and evaluating patient/reviewing data Status at Discharge: Cognitive status at discharge: cognitively intact , Behavioral status at discharge: cooperative , Functional status at discharge: independent ambulation Overall status at discharge: patient is back to baseline Quality Metrics Clinical Quality Measures During this hospital stay, did patient experience: None Coding Level of Care Code Acute Chg FW DC note Diagnoses Atherosclerotic heart disease of [place] coronary artery with unstable angina pectoris I25.110 Hyperlipidemia associated with type 2 diabetes mellitus E11.69; E78.5
== END 2020-12-26 13:47 | disposition home or self-care (01) | DRG 247 ==
LOC: CSU 00:46 → MEDSURG 03:15 → CSU 12-25 14:02
PROVIDERS: Internal Medicine; Internal Medicine Cardiovascular Disease; Admitting Provider Student in an Organized Health Care Education/Training Program; Visit Provider Hospitalist
PROC: 027034Z Dilation of Coronary Artery, One Artery with Drug-eluting Intraluminal Device, Percutaneous Approach (ICD-10-PCS; principal; 2020-12-25 08:45)
PROC: 027034Z Dilation of Coronary Artery, One Artery with Drug-eluting Intraluminal Device, Percutaneous Approach (ICD-10-PCS; 2020-12-25 08:45)
DX: I25.110 Atherosclerotic heart disease of native coronary artery with unstable angina pectoris (principal); Z87.891 Personal history of nicotine dependence; E78.5 Hyperlipidemia, unspecified; I10 Essential (primary) hypertension; Z82.49 Family history of ischemic heart disease and other diseases of the circulatory system; Z79.02 Long term (current) use of antithrombotics/antiplatelets
CPT/HCPCS: 36415; 78452; 80048; 80061; 83036; 84484; 85025; 85347; 85378; 93005; 93017; 93306; 93454; A9500; C1725; C1769; C1874; C1887; C1894; C9600; G0378; G0379; J1200; J1644; J2250; J2785; J3010; J3490; J7030; Q9967

== ENCOUNTER → 2020-12-31 15:15 | Outpatient (BNVA) | payer MEDICARE, SELFPAY | PROVIDERS: Visit Provider Nurse Practitioner Family | DX: I25.110 Atherosclerotic heart disease of native coronary artery with unstable angina pectoris (principal); Z95.5 Presence of coronary angioplasty implant and graft | CPT/HCPCS: 80048 ==

== ENCOUNTER 2021-01-11 09:30 | Outpatient (RCR) | payer SELFPAY | END 2021-02-09 23:59 | disposition home or self-care (01) | LOC: CR 09:30 | PROVIDERS: Referring Provider Internal Medicine Cardiovascular Disease; Visit Provider Internal Medicine Cardiovascular Disease | DX: Z95.5 Presence of coronary angioplasty implant and graft (principal) ==